=== PATIENT | male | born 1985 | race Caucasian/White ===

== ENCOUNTER 2016-05-26 09:56 | Emergency (ER) | payer OTHER ==
[~2016-05-26 09:56] MED LIST: DICLOFENAC PO; FLEXERIL10 MG PO; HYDROCODON-ACE1 EAC1 PO; IBUPROFEN800 MG PO; MEDROL PO; NO MEDICATIONS; VIBRAMYCIN100 M1 PO; VICODIN 5/500 T1 TAB PO; VOLTAREN75 MG PO; XANAX0.5 MG PO
== END 2016-05-26 11:07 | disposition home or self-care (01) ==
LOC: CED 09:56
DX: S61.002A Unspecified open wound of left thumb without damage to nail, initial encounter (principal); F17.200 Nicotine dependence, unspecified, uncomplicated; W22.8XXA Striking against or struck by other objects, initial encounter
CPT/HCPCS: 99283